=== PATIENT | male | born 1965 | race Caucasian/White ===

== ENCOUNTER → 2016-12-20 | Outpatient (CLI) | payer OTHER ==
[~2016-12-20] MED LIST: HYDR25TA5 PO; RAMI5CAP PO; [UNRECOGNIZED DRUG - OTHER] PO; [UNRECOGNIZED DRUG - OTHER] PO
[2016-12-20 13:21] LABS: AUTOMATED NEUTROPHIL # 10.2 TH/MM3 (1.8-7.7); BASOPHIL # 0.1 TH/MM3 (0-0.2); BASOPHIL % 0.5 % (0.0-2.0); EOSINOPHIL # 0.1 TH/MM3 (0-0.4); EOSINOPHIL % 0.4 % (0.0-4.0); HEMATOCRIT 49.3 % (39.0-51.0); HEMO FLAGS DIFF FINAL; LYMPH % 19.8 % (9.0-44.0); LYMPHOCYTE # 2.9 TH/MM3 (1.0-4.8); MEAN CELL VOLUME 86.4 FL (80.0-100.0); MEAN CORPUSCULAR HEMOGLOBIN 28.7 PG (27.0-34.0); MEAN CORPUSCULAR HGB CONC 33.2 % (32.0-36.0); NEUT % 70.3 % (16.0-70.0); PLATELET COUNT 225 TH/MM3 (150-450); RED BLOOD COUNT 5.71 MIL/MM3 (4.50-5.90); RED CELL DISTRIBUTION WIDTH 13.8 % (11.6-17.2); WHITE BLOOD COUNT 14.6 TH/MM3 (4.0-11.0)
[2016-12-20 13:33] LABS: ANION GAP 9 MEQ/L (5-15); AST (GOT) 20 U/L (15-37); BICARBONATE 28.6 MEQ/L (21.0-32.0); BLOOD UREA NITROGEN 15 MG/DL (7-18); CHLORIDE 102 MEQ/L (98-107); GLOMERULAR FILTRATION RATE 58 ML/MIN (>89); GLUCOSE,FASTING 118 MG/DL (74-99); POTASSIUM 3.4 MEQ/L (3.5-5.1); SODIUM (NA) 140 MEQ/L (136-145)
[2016-12-20 13:36] LABS: ALKALINE PHOSPHATASE 88 U/L (45-117); ALT (GPT) 49 U/L (12-78); TOTAL BILIRUBIN ADULT 0.8 MG/DL (0.2-1.0)
== END ==
LOC: PLAB 10:12
PROVIDERS: ATTEND Internal Medicine Gastroenterology
DX: K92.2 Gastrointestinal hemorrhage, unspecified (principal); K62.5 Hemorrhage of anus and rectum; R10.9 Unspecified abdominal pain
CPT/HCPCS: 80053; 85025

== ENCOUNTER → 2016-12-21 | Outpatient (CLI) | payer OTHER ==
[~2016-12-21] VITALS: Ht 180.3 cm; Wt 85.0 kg
[~2016-12-21] MED LIST changes: +PROPOFOL 200 MG/20 ML AMP IV ONE
[2016-12-21 06:59] VITALS: BP 139/87; PULSE 104; RESP 20; TEMP 98.3; O2SAT 97
--- NOTE | 2016-12-21 07:38 | GIPROC ---
[facility] [address] [place] [address], [id number] COLONOSCOPY PROCEDURE REPORT EXAM DATE: 12/21/2016 PATIENT NAME: Barron Chin MR #: [id number] BIRTHDATE: 1965 ENDOSCOPIST: Ava Bryan MD ORDER #: [id number] NEEDLE PROCESS FELT GOODS SUPERVISOR: Krishna Taylor and Livan Phan STATUS: outpatient INDICATIONS: The patient is a 51 yr old male here for a colonoscopy due to bloody diarrhea, abdominal pain PROCEDURE PERFORMED: Colonoscopy with biopsy MEDICATIONS: None and Per Anesthesia. PREP QUALITY: good PREP TYPE:Other: PREP TYPE:Other: prepopik ESTIMATED BLOOD LOSS: None CONSENT: The patient understands the risks and benefits of the procedure and understands that these risks include, but are not limited to: sedation, allergic reaction, infection, perforation and/or bleeding. Alternative means of evaluation and treatment include, among others: physical exam, x-rays, and/or surgical intervention. The patient elects to proceed with this endoscopic procedure. medical equipment was checked for proper function. Hand hygiene and appropriate measures for infection prevention was taken. After the risks, benefits and alternatives of the procedure were thoroughly explained, Informed consent was verified, confirmed and timeout was successfully executed by the treatment team. A digital exam revealed no abnormalities of the rectum The Pentax EC-3490Li and [id number] endoscope was introduced through the anus and advanced to the cecum, which was identified by both the appendix and ileocecal valve. The instrument was then slowly withdrawn as the colon was fully examined. COLON FINDINGS: Ulcerations, colitis splenic flexure and descending-suggesting ischemic colitis rest of colon normal-biopsies from cecum, ascending, transverse, descending, sigmoid, rectum done. Stool was collected for culture, ova/parasites, c.diff. Retroflexed views revealed internal hemorrhoids and Retroflexed views revealed small internal hemorrhoids The scope was then completely withdrawn from the patient and the procedure terminated. PROCEDURE WITHDRAWAL TIME:7minutes ADVERSE EVENTS: There were no complications. IMPRESSIONS: 1. Ulcerations, colitis splenic flexure and descending-suggesting ischemic colitis rest of colon normal-biopsies from cecum, ascending, transverse, descending, sigmoid, rectum done 2. Stool was collected for culture, ova/parasites, c.diff 3. Retroflexed views revealed internal hemorrhoids 4. Retroflexed views revealed small internal hemorrhoids 5. Revealed no abnormalities of the rectum RECOMMENDATIONS: 1. Await biopsy results. Biopsy results will not be ready for 7-10 days. If you don't hear from us in two weeks, call our office for results. 2. Probiotics from any [facility] or [employer] [facility] store 3. Yearly rectal exams 6. Stool C. D. T. 7. CTA soft diet flagyl 500 mg po tid/ cipro -250 mg bid 7 days RECALL: Colonoscopy, pending biopsy results Ava Bryan MD eSigned: Ava Bryan MD 12/21/2016 7:38 AM cc: PATIENT NAME: Barron Chin MR#: [id number]
--- NOTE | 2016-12-21 07:41 | GIPROC ---
[facility] [address] [place] [address], [id number] EGD PROCEDURE REPORT EXAM DATE: 12/21/2016 PATIENT NAME: Barron Chin MR #: [id number] BIRTHDATE: 1965 ATTENDING: Ava Bryan MD ORDER #: [id number] LENS GAUGER: Krishna Taylor and Livan Phan STATUS: outpatient INDICATIONS: The patient is a 51 yr old male here for an EGD due to bloody diarrhea, abdominal pain PROCEDURE PERFORMED: EGD w/ biopsy MEDICATIONS: None and Per Anesthesia. TOPICAL ANESTHETIC: none CONSENT: The patient understands the risks and benefits of the procedure and understands that these risks include, but are not limited to: sedation, allergic reaction, infection, perforation and/or bleeding. Alternative means of evaluation and treatment include, among others: physical exam, x-rays, and/or surgical intervention. The patient elects to proceed with this endoscopic procedure. medical equipment was checked for proper function. Hand hygiene and appropriate measures for infection prevention was taken. After the risks, benefits and alternatives of the procedure were thoroughly explained, Informed consent was verified, confirmed and timeout was successfully executed by the treatment team. The patient was anesthetized with topical anesthesia and the EC-3490Li (Pedi C) and [id number] endoscope was introduced through the mouth and advanced to the second portion of the duodenum. Retroflexed views revealed a hiatal hernia The gastroscope was then slowly withdrawn and removed. Duodenum normal-biopsy gastritis antrum-biopsy esophagitis distal esophagus-biopsy. ADVERSE EVENTS: There were no complications. IMPRESSIONS: 1. Duodenum normal-biopsy gastritis antrum-biopsy esophagitis distal esophagus-biopsy 2. Retroflexed views revealed a hiatal hernia RECOMMENDATIONS: 1. Await biopsy results. Biopsy results will not be ready for 7-10 days. If you don't hear from us in two weeks, call our office for biopsy results. 2. Anti-reflux regimen 3. Continue PPI 4. Avoid NSAIDS PATIENT CONDITION: stable DISPOSITION: Home REPEAT EXAM: EGD pending biopsy results Ava Bryan MD eSigned: Ava Bryan MD 12/21/2016 7:41 AM cc: PATIENT NAME: Barron Chin MR#: [id number]
[2016-12-21 07:43] VITALS: TEMP 98.2
[2016-12-21 08:03] VITALS: BP 121/86; PULSE 73; RESP 16; O2SAT 99
[2016-12-21 16:01] LABS: C. DIFF EPI 027 PRESUMPTIVE NEGATIVE (NEGATIVE); C. DIFF TOXIN PCR NEGATIVE (NEGATIVE)
--- NOTE | 2016-12-22 11:19 | EKG ---
Date Performed: 12/21/2016 Time Performed: 06:59:00 PTAGE: 51 years EKG: Sinus rhythm Normal ECG NO PREVIOUS TRACING DOCTOR: Demar Pelletier Interpretating Date/Time 12/22/2016 11:17:48
== END ==
LOC: PHSDC 06:20 → EDUNIT# 07:00
PROVIDERS: ATTEND Internal Medicine Gastroenterology
DX: K29.50 Unspecified chronic gastritis without bleeding (principal); K44.9 Diaphragmatic hernia without obstruction or gangrene; K52.9 Noninfective gastroenteritis and colitis, unspecified; K64.8 Other hemorrhoids; K55.9 Vascular disorder of intestine, unspecified; K92.1 Melena; Z01.810 Encounter for preprocedural cardiovascular examination
CPT/HCPCS: 87205; 87328; 87329; 87493; 87506; 88305; 88312; 93005